=== PATIENT | male | born 1950 | race Caucasian/White ===

== ENCOUNTER → 2019-10-11 09:23 | Outpatient (CLI) | payer MEDICARE, OTHER, SELFPAY ==
--- NOTE | 2019-10-11 | DI.RAD.S_ITS ---
PROCEDURE: XR LUMBAR SPINE 2-3V INDICATIONS: pain in unspecified foot TECHNIQUE: 3 views of the lumbar spine were acquired. COMPARISON: None. FINDINGS: Bones: 5 [id number] vertebrae are present. There is normal bony alignment. No vertebral body compression fractures. No suspicious bony lesions. Degenerative lumbosacral spine disc disease is moderately severe overall, most pronounced at L5-S1 where disc height reduction and facet osteoarthritis results in mild grade 1 anterolisthesis Soft tissues: Overlying bowel gas pattern is normal. No suspicious soft tissue calcifications. There is a pattern of curvilinear calcifications associated with the distal abdominal aorta partially visualized and also more inferiorly at approximately the expected position of the right or left distal common iliac artery potentially a manifestation of aneurysm formation. IMPRESSION: Moderately severe degenerative disc disease overall, most prominent at L5-S1 with only a slight degree of anterolisthesis associated with this degeneration. Additionally, the curvilinear calcifications discussed above in the expected position of the distal aorta and iliac arteries raises the urine for aneurysm formation. In this patient followup by screening ultrasound through the aorta and iliac artery regions bilaterally would be recommended. Dictated by: David Lucreo M.D. on 10/11/2019 at 11:24 Approved by: David Lucero M.D. on 10/11/2019 at 11:27
--- NOTE | 2019-10-11 | DI.RAD.S_ITS ---
PROCEDURE: XR FOOT RT MIN 3V INDICATIONS: pain in unspec foot TECHNIQUE: 3 views of the foot were acquired. COMPARISON: None. FINDINGS: Bones: No acute fractures or dislocations. Moderate degenerative changes of the right first metatarsophalangeal joint with marginal osteophyte formation and subchondral cystic change. Mild degenerative changes of the right first interphalangeal joint. Subchondral cystic change involving the head of the first proximal phalanx. Small retrocalcaneal enthesophyte. No suspicious bony lesions. Soft tissues: No tibiotalar joint effusion. Achilles tendon appears normal. IMPRESSION: Moderate right first metatarsophalangeal joint osteoarthrosis with overlying soft tissue prominence consistent with bunion formation. Mild degenerative changes of the right first interphalangeal joint. Small retrocalcaneal enthesopathy. Dictated by: Josse Case M.D. on 10/11/2019 at 10:32 Approved by: Josse Case M.D. on 10/11/2019 at 10:39
--- NOTE | 2019-10-11 | DI.RAD.S_ITS ---
PROCEDURE: XR FOOT LT MIN 3V INDICATIONS: pain in unspec foot TECHNIQUE: 3 views of the foot were acquired. COMPARISON: [facility], CR, XR FOOT RT MIN 3V, 10/11/2019, 9:41. FINDINGS: Bones: No acute fracture or dislocation. No suspicious intraosseous lesion. There are degenerative changes of the left first metatarsophalangeal joint with mild subchondral cystic change. There is overlying soft tissue prominence of the first MTP. Small retrocalcaneal enthesophyte. Soft tissues: No tibiotalar joint effusion. Achilles tendon appears normal. No suspicious soft tissue calcification. IMPRESSION: 1. Left foot without acute radiographic abnormality. 2. Degenerative changes of the left first metatarsophalangeal joint with overlying soft tissue prominence. There is mild subchondral cystic change. Findings are favored to represent osteoarthritic etiology although inflammatory arthropathy or gout may have a similar appearance. Dictated by: Josse Case M.D. on 10/11/2019 at 10:39 Approved by: Josse Case M.D. on 10/11/2019 at 10:44
== END ==
PROVIDERS: Visit Provider Family Medicine
DX: M79.671 Pain in right foot (principal); M79.672 Pain in left foot; M19.071 Primary osteoarthritis, right ankle and foot; M51.37 Other intervertebral disc degeneration, lumbosacral region; I70.0 Atherosclerosis of aorta
CPT/HCPCS: 72100; 73630

== ENCOUNTER → 2019-10-24 09:05 | Outpatient (CLI) | payer MEDICARE, OTHER, SELFPAY ==
--- NOTE | 2019-10-24 | DI.US.S_ITS ---
PROCEDURE: US ABD AORTA ANEURYSM SCREEN INDICATIONS: SCREEN TECHNIQUE: Real time scanning was performed of the aorta and iliac arteries, with image documentation. COMPARISON: None. FINDINGS: Aorta: Proximal is not well-visualized.. Mid-aorta measures 2.0 cm. Distal aortic diameter is 2.3 cm. Iliac arteries: Right common iliac artery measures 1.1 cm. Left common iliac artery measures 1.1 cm. IMPRESSION: Proximal aorta not well visualized; otherwise no abdominal aortic or iliac aneurysm. Dictated by: Davi SOTO Interpreted: Dudley Frey MD on 10/24/2019 at 10:40 Approved by: Dudley Frey M.D. on 10/24/2019 at 13:27
== END ==
PROVIDERS: Visit Provider Family Medicine
DX: Z13.6 Encounter for screening for cardiovascular disorders (principal); I10 Essential (primary) hypertension
CPT/HCPCS: 76706

== ENCOUNTER → 2020-07-23 09:37 | Outpatient (CLI) | payer MEDICARE, OTHER, SELFPAY ==
--- NOTE | 2020-07-23 | DI.RAD.S_ITS ---
PROCEDURE: XR KNEE LT 1TO2V INDICATIONS: Unilateral primary osteoarthritis, left knee TECHNIQUE: 2 high views of the knee were acquired. COMPARISON: None. FINDINGS: Bones: No fracture. Severe left knee joint degeneration. Scattered vascular calcifications. Moderate joint effusion. IMPRESSION: Severe left knee joint degeneration. Moderate joint effusion Dictated by: Dudley Frey M.D. on 07/23/2020 at 13:54 Approved by: Dudley Frey M.D. on 07/23/2020 at 13:55
== END ==
PROVIDERS: PCP Family Medicine; Referring Provider Family Medicine; Visit Provider Family Medicine
DX: M17.12 Unilateral primary osteoarthritis, left knee (principal); M25.462 Effusion, left knee
CPT/HCPCS: 73560

== ENCOUNTER → 2020-12-28 08:33 | Outpatient (CLI) | payer MEDICARE, OTHER, SELFPAY ==
--- NOTE | 2020-12-28 | DI.MRI.S_ITS ---
PROCEDURE: MR LUMBAR SPINE WO CON INDICATIONS: Sciatica, unspecified side TECHNIQUE: Noncontrast sagittal T1 spin echo and T2 fast echo, sagittal STIR, axial T1 and T2 fast spin echo through the lumbar spine. In cases with scoliosis, additional coronal T2 fast spin echo may be performed. COMPARISON: [facility], CR, XR LUMBAR SPINE 2-3V, 10/11/2019, 9:38. FINDINGS: Image quality: Excellent. Alignment and Curvature: 5 lumbar type vertebral bodies are present by plain film. There is loss of normal lumbar lordosis. There is mild grade 1 retrolisthesis of L1 on L2, L2 on L3, L3 on L4, and L4 on L5. Mild grade 1 anterolisthesis of L5 on S1. Bone Marrow: Marrow is of normal overall signal. No acute vertebral body compression fractures. Left-sided L5-S1 pars interarticularis defect. Mild reactive signal throughout the endplates of the lumbar and lower thoracic spine. Spinal Cord: Conus medullaris terminates at the lower L1 level. Visualized cord demonstrates normal signal and size. Paraspinous Soft Tissues: No paravertebral masses. T12-L1: Moderate disc height loss and desiccation. Mild diffuse disc bulge. Mild facet and ligamentum flavum hypertrophy. Mild canal stenosis. No foraminal stenosis. L1-L2: Moderate disc height loss and desiccation. Mild diffuse disc bulge. Mild facet and ligamentum flavum hypertrophy. Mild epidural lipomatosis. Mild canal stenosis. Mild bilateral foraminal stenosis. L2-L3: Moderate disc height loss and desiccation. Mild diffuse disc bulge. Mild facet and ligamentum flavum hypertrophy. Mild epidural lipomatosis. Mild canal stenosis. Mild bilateral foraminal stenosis. L3-L4: Moderate disc height loss and desiccation. Mild diffuse disc bulge. Mild facet and ligament flavum hypertrophy. Mild epidural lipomatosis. Mild canal stenosis. Moderate bilateral foraminal stenosis. L4-L5: Moderate disc height loss and desiccation. Mild diffuse disc bulge with superimposed left paracentral protrusion. Mild facet and ligamentum flavum hypertrophy. Mild canal stenosis. Moderate right and mild left foraminal stenosis. L5-S1: Moderate disc height loss and desiccation. Moderate diffuse disc bulge. Mild facet hypertrophy. Mild epidural lipomatosis. Mild canal stenosis. Moderate left and severe right foraminal stenosis. Right L5 nerve root compression. IMPRESSION: 1. Multilevel degenerative disc and facet disease, as well as ligamentum flavum hypertrophy and epidural lipomatosis. 2. Grade 1 isthmic spondylolisthesis at L5-S1. 3. Mild multilevel canal stenosis. 4. Multilevel foraminal stenosis, worst on the right at L5-S1 where there is associated intraforaminal nerve root compression. Recommend correlation with clinical symptoms to ascertain relevance of this finding. Dictated by: Charli Schreiber M.D. on 12/28/2020 at 9:30 Approved by: Charli Schreiber M.D. on 12/28/2020 at 9:37
== END ==
PROVIDERS: PCP Family Medicine; Referring Provider Family Medicine; Visit Provider Family Medicine
DX: M54.5 Low back pain (principal); M51.16 Intervertebral disc disorders with radiculopathy, lumbar region; M51.17 Intervertebral disc disorders with radiculopathy, lumbosacral region; M43.17 Spondylolisthesis, lumbosacral region; M48.061 Spinal stenosis, lumbar region without neurogenic claudication; M48.07 Spinal stenosis, lumbosacral region; E88.2 Lipomatosis, not elsewhere classified
CPT/HCPCS: 72148

== ENCOUNTER → 2024-07-20 11:35 | Outpatient (CLI) | payer MEDICARE, OTHER, SELFPAY ==
--- NOTE | 2024-07-20 11:37 | DI.MRI.S_ITS ---
PROCEDURE: MR LUMBAR SPINE WO CON INDICATIONS: intervertebral disc degeneration, lumbosacral TECHNIQUE: Noncontrast sagittal T1 spin echo and T2 fast echo, sagittal STIR, and T2 fast spin echo through the lumbar spine. In cases with scoliosis, additional coronal T2 fast spin echo may be performed. COMPARISON: [facility], MR, MR LUMBAR SPINE WO CON, 12/28/2020, 8:45. FINDINGS: Image quality: Excellent. Alignment and Curvature: There is 5 mm retrolisthesis of L1 on L2 and L2 on L3. There is 4 mm retrolisthesis of L3 on L4. There is also 6 mm anterolisthesis of L5 on S1 Bone Marrow: There is no marrow edema. No acute vertebral body compression fractures. Spinal Cord: Conus medullaris terminates at the L1 level. Visualized cord demonstrates normal signal and size. Paraspinous Soft Tissues: No paravertebral masses. T12-L1: Loss of disc height and disc signal. No significant disc bulge, canal stenosis or neural foraminal narrowing. L1-L2: Loss of disc height and disc signal. Mild diffuse disc bulge and bilateral facet arthrosis with mild right-sided neural foraminal narrowing. No significant central canal stenosis. L2-L3: Loss of disc height and disc signal. Broad-based disc bulge and bilateral facet arthrosis with hypertrophy of ligamentum flavum causing moderate bilateral neural foraminal narrowing and mild central canal stenosis. Bulging disc likely contacting bilateral L2 nerve roots. L3-L4: Loss of disc height and disc signal. Broad-based disc bulge and bilateral facet arthrosis with hypertrophy of ligamentum flavum causing moderate central canal stenosis, severe right-sided neural foraminal narrowing and moderate to severe left-sided neural foraminal narrowing. Bulging disc is seen contacting bilateral L3 nerve roots. L4-L5: Loss of disc signal and disc height. Broad-based disc bulge and bilateral facet arthrosis with hypertrophy of ligamentum flavum causing mild central canal stenosis and moderate left worse than right bilateral neural foraminal narrowing. Bulging disc is seen contacting bilateral L4 nerve roots. L5-S1: Normal appearance. IMPRESSION: 1. Likely degenerative spondylolisthesis throughout lumbar spine as described above. No marrow edema. No acute vertebral body compression fracture. 2. Degenerative disc disease throughout lumbar spine causing various degrees of central canal stenosis and bilateral neural foraminal narrowing as described in detail above. Dictated by: Balaji Parker M.D. on 07/20/2024 at 17:28 Approved by: Balaji Parker M.D. on 07/20/2024 at 17:31
== END ==
PROVIDERS: PCP Family Medicine; Referring Provider Family Medicine; Visit Provider Family Medicine
DX: M51.37 Other intervertebral disc degeneration, lumbosacral region (principal); M51.36 Other intervertebral disc degeneration, lumbar region; M48.061 Spinal stenosis, lumbar region without neurogenic claudication; M62.81 Muscle weakness (generalized)
CPT/HCPCS: 72148

== ENCOUNTER → 2025-02-14 12:28 | Outpatient (CLI) | payer MEDICARE, OTHER, SELFPAY ==
--- NOTE | 2025-02-14 12:33 | DI.CT.S_ITS ---
PROCEDURE: CT IVP A/P W/WO INDICATIONS: Gross hematuria TECHNIQUE: Optional 5 mm thick noncontrast images acquired from the diaphragm to the symphysis pubis. After the administration of intravenous contrast, 5 mm thick images acquired from the diaphragm to the symphysis pubis after a 10-minute delay. 2 mm thick coronal and sagittal reformats were then performed of the kidneys and ureters. For radiation dose reduction, the following was used: automated exposure control, adjustment of mA and/or kV according to patient size. COMPARISON: [facility], MR, MR LUMBAR SPINE WO CON, 07/20/2024, 12:10. FINDINGS: Image quality: Diagnostic. Kidneys and Ureters: Both kidneys are normal in size without hydronephrosis. Bilateral nonobstructing renal calculi are seen measures 3-4 mm in size. Nonspecific mild bilateral perinephric fat stranding is seen. No perinephric fluid collection. There is normal bilateral renal enhancement. Simple appearing left renal cyst is seen measures 6.2 x 6.4 cm in size. Tiny simple appearing cyst in lower pole right kidney is also noted. No gross enhancing renal lesion. Renal calyces appear normal in morphology when filled with contrast. Opacified portions of both ureters demonstrate normal caliber Bladder: There is mild bladder wall thickening. No discrete bladder wall mass. No calcified bladder stones. No intraluminal filling defects. OTHER: Lower chest: Unremarkable. Liver: No solid mass. Moderate hepatic steatosis is seen. Gallbladder: No radiopaque gallstones or wall thickening. Biliary ducts: No biliary dilation. Pancreas: No ductal dilation. Spleen: Size is within normal limits. Adrenal Glands: No adrenal nodules. Stomach and Bowel: There is no bowel obstruction or abnormal bowel wall thickening. Colonic diverticulosis without CT evidence of acute diverticulitis. No abscess collection. Peritoneum: No abnormal intraperitoneal fluid. No free air. Ventral Wall: Moderate sized umbilical hernia containing mesenteric fat and short segment of small bowel loop. Abdominal Nodes: No retroperitoneal or mesenteric adenopathy by size criteria. Vessels: Aorta and inferior vena cava are normal in size. Moderate atherosclerotic calcifications in abdominal aorta and bilateral iliac arteries are seen. PELVIS: Pelvic Organs: Enlarged prostate gland with mass effect on floor of urinary bladder is noted. Pelvic Nodes: No enlarged lymph nodes. Miscellaneous: No inguinal hernias are seen. Bones: No aggressive osseous abnormality. Spondylitic changes throughout lower thoracic and lumbar spine is seen. No acute vertebral body compression fracture. IMPRESSION: 1. No obstructing renal stones or hydronephrosis. Tiny nonobstructing bilateral renal calculi as above. No hydroureter. 2. No gross enhancing renal lesion. Simple appearing bilateral renal cysts as above. Nonspecific mild bilateral perinephric fat stranding, mild infectious or inflammatory pyelonephritis cannot be excluded. Clinical correlation is recommended. 3. Enlarged prostate gland with mass effect on floor of urinary bladder. Diffuse bladder wall thickening, no discrete bladder wall mass or intraluminal filling defect. No calcified bladder stones. Finding may represent chronic urinary outlet obstruction versus cystitis suggest clinical correlation. 4. No bowel obstruction or abnormal bowel wall thickening. Colonic diverticulosis without CT evidence of acute diverticulitis. No free fluid or free air. Dictated by: Balaji Parker M.D. on 02/14/2025 at 19:11 Approved by: Balaji Parker M.D. on 02/14/2025 at 19:55
[2025-02-14 13:09] LABS: Estimated Glomerular Filt Rate > 60 mL/min (>60)
== END ==
PROVIDERS: PCP Family Medicine; Referring Provider Family Medicine; Visit Provider Physician Assistant Medical
DX: N28.1 Cyst of kidney, acquired (principal); R31.0 Gross hematuria; N20.0 Calculus of kidney; K76.0 Fatty (change of) liver, not elsewhere classified; K57.90 Diverticulosis of intestine, part unspecified, without perforation or abscess without bleeding; N40.0 Benign prostatic hyperplasia without lower urinary tract symptoms; K42.9 Umbilical hernia without obstruction or gangrene; I70.0 Atherosclerosis of aorta
CPT/HCPCS: 36415; 74178; 82565; Q9967